=== PATIENT | female | born 1940 | race Caucasian/White ===

== ENCOUNTER 2017-03-22 14:12 | Emergency (ER) | payer MEDICARE, BC ==
[2017-03-22 15:27] LABS: BASOPHILS 0.3 % (0-2); EOSINOPHILS 1.7 % (0-7); HEMATOCRIT 34.9 % (36.0-48.0); HEMOGLOBIN 11.9 g/dL (12-16); IMMATURE GRANULOCYTES 0.2 % (0-5); LYMPHOCYTES 17.9 % (15-50); MCH 33.6 pg (26.0-34.0); MCHC 34.1 g/dL (31.0-37.0); MCV 98.6 fL (80.0-100.0); MEAN PLATELET VOLUME 9.8 fL (7.4-10.4); NEUTROPHILS 71.9 % (40-80); PLATELET COUNT 272 10x3/uL (130-400); RBC 3.54 10x6/uL (4.00-5.40); RDW 12.6 % (11.5-14.5); WBC 10.1 10x3/uL (4.8-10.8)
[2017-03-22 15:50] LABS: ALBUMIN 3.5 g/dL (3.4-5.0); BILIRUBIN - TOTAL 0.5 mg/dL (0.2-1.3); CARBON DIOXIDE 23.4 mmol/L (21.0-32.0); CREATININE - SERUM 1.4 mg/dL (0.6-1.3); POTASSIUM - SERUM 5.4 mmol/L (3.5-5.1); PROTEIN - SERUM 6.6 g/dL (6.4-8.2)
[2017-03-22 15:56] LABS: APTT 24.1 SECONDS (22.8-39.4); INR 1.04 (0.85-1.17); PROTIME 13.4 SECONDS (11.6-15.0)
[2017-04-30 10:43] VITALS: BMI 17.9
== END 2017-03-22 20:20 | disposition home or self-care (01) ==
LOC: D.ER 14:12
PROVIDERS: Nurse Practitioner Acute Care
DX: M25.522 Pain in left elbow (principal); W19.XXXA Unspecified fall, initial encounter; Y93.89 Activity, other specified; Y92.029 Unspecified place in mobile home as the place of occurrence of the external cause

== ENCOUNTER 2017-04-29 20:30 | Observation (INO) | payer MEDICARE, BC ==
[~2017-04-29] VITALS: Ht 157.5 cm; Wt 44.5 kg
[2017-04-29 20:51] LABS: BASOPHILS 0.9 % (0-2); EOSINOPHILS 4.9 % (0-7); HEMATOCRIT 32.6 % (36.0-48.0); HEMOGLOBIN 10.3 g/dL (12-16); IMMATURE GRANULOCYTES 0.1 % (0-5); LYMPHOCYTES 28.8 % (15-50); MCHC 31.6 g/dL (31.0-37.0); MCV 101.2 fL (80.0-100.0); MEAN PLATELET VOLUME 9.1 fL (7.4-10.4); MONOCYTES 11.4 % (2-11); NEUTROPHILS 53.9 % (40-80); PLATELET COUNT 356 10x3/uL (130-400); RBC 3.22 10x6/uL (4.00-5.40); RDW 12.9 % (11.5-14.5)
[2017-04-29 21:05] LABS: ALKALINE PHOSPHATASE 91 U/L (46-116); ALT (SGPT) 10 U/L (10-68); CALC OSMOLALITY 275 mosm/kg (275-300); CALCIUM 8.5 mg/dL (8.5-10.1); CARBON DIOXIDE 20.8 mmol/L (21.0-32.0); CHLORIDE - SERUM 103 mmol/L (98-107); CREATININE - SERUM 1.4 mg/dL (0.6-1.3); GLUCOSE 93 mg/dL (74-106); POTASSIUM - SERUM 4.2 mmol/L (3.5-5.1); PROTEIN - SERUM 6.3 g/dL (6.4-8.2); SODIUM 137 mmol/L (136-145); UREA NITROGEN 18 mg/dL (7-18); eGFR NON AFRICAN AMERICAN 38 mL/min (90-120)
[2017-04-29 21:08] LABS: CREATINE KINASE 25 UL (21-215)
[2017-04-29 21:10] LABS: TROPONIN-I < 0.017 ng/mL (0.000-0.060)
[2017-04-29 21:19] LABS: APTT 24.6 SECONDS (22.8-39.4); INR 1.07 (0.85-1.17); PROTIME 13.5 SECONDS (11.6-15.0)
[2017-04-29 21:32] LABS: APPEARANCE CLEAR (CLEAR); BILIRUBIN NEGATIVE (NEGATIVE); COLOR YELLOW (YELLOW); GLUCOSE NEGATIVE (NEGATIVE); KETONE NEGATIVE (NEGATIVE); NITRITE NEGATIVE (NEGATIVE); PROTEIN NEGATIVE (NEGATIVE); UROBILINOGEN NORMAL (NORMAL)
--- NOTE | 2017-04-29 23:30 | NUR ---
ADMIT TO ROOM 2124 FROM ER. ACCOMPANIED BY POOL. ALERT/ORIENTED. WEARING A WRIST BRACE ON HER LEFT WRIST. PIV TO RIGHT A/C WITH NS @ 100ML/HR INFUSING. ADMISSION HISTORY AND ASSESSMENT COMPLETED. HOME MEDS REVIEWED AND UPDATED. PT HAS A HISTORY OF BILATERAL MASTECTOMY OF SUMMER 2014. SHE STATES HER CANCER DOCTOR SAYS IT IS OK TO USE HER ARM FOR BP'S BUT DECISON MADE TO DO ALL BP'S IN PT'S LOWER EXTREMITIES.
[2017-04-30] VITALS: BP 132/52
[2017-04-30] MEDS ORDERED: LEVOTHYROXINE50 MCG PO (00:33)
[2017-04-30] MEDS ORDERED: HYZAAR 100-25 T1 TAB PO (00:34)
[2017-04-30] MEDS ORDERED: HYDROCODONE-APA1 TAB PO (00:35)
[2017-04-30] MEDS ORDERED: PERCOCET 10/3251 TA1 PO (00:36)
[2017-04-30] MEDS ORDERED: NORVASC5 MG PO (00:39)
[2017-04-30] MEDS ORDERED: GABAPENTIN100 MG PO (00:41)
[2017-04-30 00:43] VITALS: BMI 17.9
[2017-04-30 04:00] VITALS: BP 165/60
--- NOTE | 2017-04-30 07:25 | NUR ---
ASSESSMENT COMPLETED. TELEMERTY SHOWS SR . LEFT WRIST BRACE ON. LEFT ARM DISCLORED. BI LATERAL MASTECTOMY. DENIES ANY NEEDS. UP AB GARCÍA
--- NOTE | 2017-04-30 08:00 | NUR ---
MEAL SERVED NAD NOTED
[2017-04-30 09:34] VITALS: BP 170/74
[2017-04-30] MEDS ORDERED: COZAAR50 MG PO (10:21)
[2017-04-30 10:43] VITALS: Ht 157.5 cm; Wt 44.5 kg
--- NOTE | 2017-04-30 11:38 | NUR ---
PT DISCHARGED. IV DCD WITH TIP INTACT. TO PRIVATE CAR PER WHEELCHAIR
== END 2017-04-30 11:38 | disposition home or self-care (01) ==
LOC: D.ER 20:30 → OBSVTIME 22:01 → D.M2 22:01
PROVIDERS: Emergency Medicine; Nurse Practitioner Family; ADMIT Family Medicine
DX: I95.1 Orthostatic hypotension (principal); K44.9 Diaphragmatic hernia without obstruction or gangrene; I10 Essential (primary) hypertension; Z85.3 Personal history of malignant neoplasm of breast; Z87.891 Personal history of nicotine dependence